=== PATIENT | female | born 1935 | race Native Hawaiian/Other Pacific Islander ===

== ENCOUNTER 2016-10-04 08:35 | Outpatient (CLI) | payer OTHER ==
[2016-10-04 08:49] LABS: PLATELET COUNT 275 K/uL (152-353)
[2016-10-04 09:09] LABS: POTASSIUM 4.3 mmol/L (3.6-5.2); SODIUM 135 mmol/L (136-145)
== END 2016-10-05 01:57 | disposition home or self-care (01) ==
LOC: LABW 08:35
PROVIDERS: Internal Medicine
DX: Z00.00 Encounter for general adult medical examination without abnormal findings (principal); I10 Essential (primary) hypertension; E78.4 Other hyperlipidemia; E03.8 Other specified hypothyroidism; R53.81 Other malaise
CPT/HCPCS: 36415; 80053; 80061; 84443; 85027; 86140

== ENCOUNTER 2018-03-13 08:10 | Outpatient (CLI) | payer OTHER ==
[2018-03-13 09:42] LABS: PLATELET COUNT 276 K/uL (152-353)
[2018-03-13 10:07] LABS: POTASSIUM 3.9 mmol/L (3.6-5.2)
== END 2018-03-13 19:34 | disposition home or self-care (01) ==
LOC: LABW 08:10
PROVIDERS: Internal Medicine
DX: E78.5 Hyperlipidemia, unspecified (principal); I10 Essential (primary) hypertension; R73.01 Impaired fasting glucose; Z79.899 Other long term (current) drug therapy
CPT/HCPCS: 36415; 80053; 80061; 83036; 84443; 85027

== ENCOUNTER 2019-04-09 08:25 | Outpatient (CLI) | payer OTHER ==
[2019-04-09 08:45] LABS: PLATELET COUNT 282 K/uL (152-353)
== END 2019-04-09 21:50 | disposition home or self-care (01) ==
LOC: LABW 08:25
PROVIDERS: Internal Medicine
DX: Z00.00 Encounter for general adult medical examination without abnormal findings (principal); R53.81 Other malaise; E03.8 Other specified hypothyroidism; I10 Essential (primary) hypertension; E78.00 Pure hypercholesterolemia, unspecified; Z79.899 Other long term (current) drug therapy
CPT/HCPCS: 36415; 80053; 80061; 83036; 84443; 85027

== ENCOUNTER 2019-07-25 16:10 | Outpatient (CLI) | payer OTHER | END 2019-07-25 19:38 | disposition home or self-care (01) | LOC: LABW 16:10 | DX: J20.9 Acute bronchitis, unspecified (principal) ==

== ENCOUNTER 2019-09-07 12:41 | Outpatient (CLI) | payer OTHER | END 2019-09-07 19:40 | disposition home or self-care (01) | LOC: RAD 12:41 | DX: S90.32XA Contusion of left foot, initial encounter (principal) ==

== ENCOUNTER 2020-01-10 11:55 | Emergency (ER) | payer OTHER ==
[~2020-01-10] VITALS: Ht 160 cm; Wt 52.2 kg
[2020-01-10 12:03] VITALS: TEMP 98.1
[2020-01-10 13:00] LABS: PLATELET COUNT 241 K/uL (152-353)
[2020-01-10 13:06] LABS: POTASSIUM 3.2 mmol/L (3.6-5.2); SODIUM 131 mmol/L (136-145)
[2020-01-10 13:07] LABS: PARTIAL THROMBOPLASTIN TIME 24.5 SECONDS (24.5-33.6)
[2020-01-10 14:35] VITALS: BP 128/56
== END 2020-01-10 14:35 | disposition home or self-care (01) ==
LOC: ED 11:55
PROVIDERS: Hospitalist
DX: G44.209 Tension-type headache, unspecified, not intractable (principal); E87.6 Hypokalemia; M54.2 Cervicalgia; E07.89 Other specified disorders of thyroid
CPT/HCPCS: 80053; 82550; 83880; 84484; 85027; 85610; 85730; 93005; 96372; 99283; J1885; J2405

== ENCOUNTER 2020-11-25 08:13 | Outpatient (CLI) | payer OTHER | END 2020-11-25 20:58 | disposition home or self-care (01) | LOC: RAD 08:13 → MAMMO 08:30 → RAD 20:58 | PROVIDERS: ATTEND Family Medicine | DX: I10 Essential (primary) hypertension (principal); Z12.31 Encounter for screening mammogram for malignant neoplasm of breast; Z13.820 Encounter for screening for osteoporosis; N95.8 Other specified menopausal and perimenopausal disorders; Z13.6 Encounter for screening for cardiovascular disorders; Z87.891 Personal history of nicotine dependence ==

== ENCOUNTER 2020-11-27 08:20 | Outpatient (CLI) | payer OTHER | END 2020-11-27 19:32 | disposition home or self-care (01) | LOC: NM 08:20 | PROVIDERS: ATTEND Family Medicine | DX: I10 Essential (primary) hypertension (principal); Z79.899 Other long term (current) drug therapy | CPT/HCPCS: A9500 ==

== ENCOUNTER 2021-10-29 14:22 | Outpatient (CLI) | payer OTHER | END 2021-10-29 20:02 | disposition home or self-care (01) | LOC: RAD 14:22 | PROVIDERS: ATTEND Nurse Practitioner Family | DX: Z01.818 Encounter for other preprocedural examination (principal) ==

== ENCOUNTER 2021-11-02 10:54 | Outpatient (CLI) | payer OTHER | END 2021-11-02 18:58 | disposition home or self-care (01) | LOC: RAD 10:54 | PROVIDERS: ATTEND Nurse Practitioner Family | DX: J18.0 Bronchopneumonia, unspecified organism (principal) ==

== ENCOUNTER 2021-11-25 13:07 | Outpatient (CLI) | payer OTHER | END 2021-11-25 19:18 | disposition home or self-care (01) | LOC: RAD 13:07 | PROVIDERS: ATTEND Nurse Practitioner Family | DX: J18.0 Bronchopneumonia, unspecified organism (principal) ==

== ENCOUNTER 2021-12-08 08:30 | Outpatient (CLI) | payer OTHER | END 2021-12-08 18:58 | disposition home or self-care (01) | LOC: CT 08:30 | PROVIDERS: ATTEND Nurse Practitioner Family | DX: J18.9 Pneumonia, unspecified organism (principal) | CPT/HCPCS: 36415; 82565; 84520; Q9963 ==

== ENCOUNTER 2022-02-13 11:58 | Emergency (ER) | payer OTHER ==
[~2022-02-13] VITALS: Ht 160 cm; Wt 47.6 kg
[2022-02-13 12:00] VITALS: TEMP 98.2
[2022-02-13 12:18] LABS: PLATELET COUNT 269 K/uL (152-353)
[2022-02-13 12:25] LABS: POTASSIUM 3.9 mmol/L (3.6-5.2)
[2022-02-13 12:33] LABS: PARTIAL THROMBOPLASTIN TIME 24.2 SECONDS (24.5-33.6)
[2022-02-13] MEDS ORDERED: PROM25TA52 PO (16:44)
[2022-02-13] MEDS ORDERED: LISITAB PO (16:44)
[2022-02-13] MEDS ORDERED: ASPI-93 PO (16:45)
[2022-02-13] MEDS ORDERED: VYZULTA0.024 % OPTH (16:45)
[2022-02-13] MEDS ORDERED: COMBIGAN0.2 MG/0.5 OPTH (16:46)
[2022-02-13] MEDS ORDERED: LEVO0.0723 PO (16:46)
[2022-02-13] MEDS ORDERED: PREMARIN VAG (16:58)
[2022-02-13 17:33] VITALS: BP 121/54
== END 2022-02-13 17:35 | disposition short-term general hospital (02) ==
LOC: ED 11:58
PROVIDERS: Emergency Medicine
DX: E87.1 Hypo-osmolality and hyponatremia (principal); R00.1 Bradycardia, unspecified; Z11.52 Encounter for screening for COVID-19; R06.02 Shortness of breath
CPT/HCPCS: 36415; 80053; 81002; 83880; 84443; 84484; 85027; 85610; 85730; 87635; 93005; 96360; 99284; U0003

== ENCOUNTER 2022-03-08 10:58 | Outpatient (CLI) | payer OTHER ==
[~2022-03-08 10:58] MED LIST: ASPI-93 PO; COMBIGAN0.2 MG/0.5 OPTH; LEVO0.0723 PO; LISITAB PO; PREMARIN VAG; PROM25TA52 PO; VYZULTA0.024 % OPTH
== END 2022-03-08 18:59 | disposition home or self-care (01) ==
LOC: CT 10:58
PROVIDERS: ATTEND Nurse Practitioner Family
DX: R91.1 Solitary pulmonary nodule (principal)

== ENCOUNTER 2022-08-06 10:36 | Outpatient (CLI) | payer OTHER | END 2022-08-06 23:37 | disposition home or self-care (01) | LOC: MAMMO 10:36 | PROVIDERS: ATTEND Nurse Practitioner Family | DX: Z12.31 Encounter for screening mammogram for malignant neoplasm of breast (principal) ==

== ENCOUNTER 2022-09-07 14:56 | Outpatient (CLI) | payer OTHER | END 2022-09-07 19:23 | disposition home or self-care (01) | LOC: RAD 14:56 | PROVIDERS: ATTEND Nurse Practitioner Family | DX: M25.511 Pain in right shoulder (principal) ==

== ENCOUNTER 2022-11-29 10:46 | Outpatient (CLI) | payer OTHER | END 2022-11-29 18:59 | disposition home or self-care (01) | LOC: RAD 10:46 | PROVIDERS: ATTEND Nurse Practitioner Family | DX: Z13.820 Encounter for screening for osteoporosis (principal); N95.8 Other specified menopausal and perimenopausal disorders ==